=== PATIENT | female | born 1980 | race Caucasian/White ===

== ENCOUNTER 2018-04-12 13:41 | Emergency (ER) | payer MEDICAID, OTHER ==
--- NOTE | 2018-04-12 13:57 | Emergency Department Report ---
Blank Doc - Documentation Documentation: This is a 37-year-old female that presents with syncope this morning in shower. Stated was caught by her before falling. Denies any head trauma or back pain. Denies any neck pain. This initial assessment diagnostic orders/clinical plan/treatment(s) is/are subject to change based on patient's health status, clinical progression and re- assessment by fellow clinical providers in the ED. Further treatment and workup at subsequent clinical providers discretion. Patient/guardians urged not to elope from ED s their condition may be serious if not clinically assessed and managed. Initial orders include: 1-Patient sent to MAIN ED for further evaluation and treatment 2-EKG 3- Labs 4- UA 5- CT of head
--- NOTE | 2018-04-12 15:23 | Cat Scan Report ---
CT HEAD WITHOUT CONTRAST: HISTORY: Syncope. TECHNIQUE: Sequential 2.5mm CT images. COMPARISON: none. FINDINGS: Cerebral Parenchyma: Within normal limits. Cerebellum: Within normal limits. Brainstem: Within normal limits. Ventricles: Normal. Sella: Normal. Extra-axial spaces: Normal. Basal Cisterns: Normal. Intracranial Hemorrhage: None. Midline Shift: None. Calvarium: Normal. Sinuses: Normal. Mastoid Air Cells: Normal. Visualized Orbits: Normal. IMPRESSION: Cranial CT scan within normal limits.
--- NOTE | 2018-04-12 15:35 | Emergency Department Report ---
ED Syncope HPI - General Chief Complaint: Syncope Stated Complaint: LIGHT HEADED Time Seen by Provider: 04/12/18 13:51 Source: patient, family - History of Present Illness Initial Comments: Ms. Chopra is a 37-year-old female with history of Crescencio en Y gastric bypass surgery presents with 1 month fatigue, several months of oral and body rash. Today she had a syncopal episode. She was in her normal state of health when she felt extremely warm and lightheaded in the shower. She developed ear ringing. She then passed out into the arms of her who witnessed the episode. She then passed out into the her 's arms. No seizure activity. says he was unconscious for about 1 minute with eyes fluttering. She's had diffuse body rash with persistent periorbital erythema irritation. She also had pins and needle sensation in her extremities. Family members notice that she eats ice constantly. She is 3 years status post Crescencio-en-Y gastric bypass surgery. She has been u nable to tolerate vitamin supplementation. "My stomach will not take it." Timing/Prior Episodes: single episode today Precipitating Factors: Positive: lightheadedness Context: standing Loss of Consciousness: prolonged (minutes) (1) Current Symptoms: other (malaise) - Related Data Allergies/Adverse Reactions: Allergies morphine Allergy (Verified 07/22/13 14:42) Headache Home Medications: Ambulatory Orders No Known Home Medications [No Reported Home Medications] 09/29/13 ED Review of Systems ROS: Stated complaint: LIGHT HEADED Other details as noted in HPI Comment: All other systems reviewed and negative Constitutional: malaise, weakness ED Past Medical Hx - Past Medical History Previous Medical History?: Yes Hx Hypertension: Yes (diet controlled) Hx Asthma: Yes Additional medical history: high cholesterol; mitral valve prolapse-at age - Surgical History Additional Surgical History: tubal aligation; breast reduction - Social History Smoking Status: Current Every Day Smoker Substance Use Type: None - Medications Home Medications: Home Medications Medication Instructions Recorded Confirmed Last Taken Type No Known Home Medications [No 09/29/13 09/29/13 Unknown History Reported Home Medications] ED Physical Exam - General Limitations: No Limitations General appearance: alert, in no apparent distress - Head Head exam: Present: atraumatic, normocephalic - Eye Eye exam: Present: normal appearance - ENT ENT exam: Present: mucous membranes moist, other (perioral erythema and mild lip edema) - Neck Neck exam: Present: normal inspection - Respiratory Respiratory exam: Present: normal lung sounds bilaterally. Absent: respiratory distress, wheezes, rales, rhonchi - Cardiovascular Cardiovascular Exam: Present: regular rate, normal rhythm, normal heart sounds. Absent: systolic murmur, diastolic murmur, rubs, gallop - GI/Abdominal GI/Abdominal exam: Present: soft, normal bowel sounds. Absent: distended, tenderness, guarding, rebound - Extremities Exam Extremities exam: Present: normal inspection - Back Exam Back exam: Present: normal inspection - Neurological Exam Neurological exam: Present: alert, oriented X3 - Psychiatric Psychiatric exam: Present: normal affect, normal mood - Skin Skin exam: Present: warm, dry, intact, normal color. Absent: rash ED Course Vital Signs 04/12/18 04/12/18 13:57 15:38 Temperature 98.3 F Pulse Rate 90 Pulse Rate [ 71 Lying] Pulse Rate [ 88 Sitting] Pulse Rate [ 93 H Standing] Respiratory 18 Rate Blood Pressure 121/62 Blood Pressure 109/62 [Lying] Blood Pressure 115/70 [Sitting] Blood Pressure 119/72 [Standing] O2 Sat by Pulse 100 Oximetry ED Medical Decision Making - Lab Data Result diagrams: 04/12/18 15:57 04/12/18 15:57 - EKG Data EKG shows normal: sinus rhythm, axis, intervals, QRS complexes, ST-T waves Rate: normal - Radiology Data Radiology results: report reviewed, image reviewed interpreted by me: bilateral knee radiographs: no fx no dislocation ct head: NAP - Medical Decision Making Ms. Chopra presents with stomatitis, rash, paresthesias, fatigue now syncope 3 years after RYGB. I suspect micronutrient deficiency likely thiamine or vitamin B6. She has appointment with bariatric surgeon. She will need urgent treatment for vitamin deficiencies. I repeatedly stress the possibility of paralysis. She has stomach upset with vitamin supplementation. She was unable to afford the prescribed vitamin supplement offered as an alternative. She has been without micronutrient supplementation for one year. I have referred her to our bariatric surgeon here at [facility]. She has been recently evicted. She has limited transportation to [facility] for [facility] Management. Personal Bariatric Surgeon Dr. Davidson Sesay. I attempted to contact her personal surgeon without success. She will begin iron supplementation and oral liquid vitamin supplementation. She understands that she will likely need IV infusion therapy. dc'd home Critical care attestation.: If time is entered above; I have spent that time in minutes in the direct care of this critically ill patient, excluding procedure time. ED Disposition Clinical Impression: Vitamin deficiency, History of Crescencio-en-Y gastric bypass, Stomatitis, Neuropathy, Syncope, Pica in adults, Orthostatic hypotension, Iron deficiency anemia Disposition: DC TO HOME OR SELFCARE Is pt being admited?: No Does the pt Need Aspirin: No Condition: Stable Instructions: Syncope (ED), Iron Deficiency Anemia (ED) Additional Instructions: You have severe vitamin deficiencies causing your symptoms. Please contact your bariatric surgery service today for vitamin infusion. Referrals: BRENDA BORDEN MD [Staff Physician] - [facility]
--- NOTE | 2018-04-12 15:39 | XRay Report ---
BILATERAL KNEES, 3 VIEWS History: Bilateral knee pain. Findings: Normal bone mineralization. No acute osseous findings or joint pathology is identified. The soft tissues are unremarkable. Impression: Unremarkable bilateral knees.
[2018-04-12] MEDS ORDERED: NACL 0.9% 1000 ML 1,000 ML IV ONE (15:48)
[2018-04-12 16:32] LABS: Hematocrit 27.6 % (30.3-42.9); Hemoglobin 8.2 gm/dl (10.1-14.3); Mean Corpuscular HGB Conc 30 % (30-34); Platelet Count 225 K/mm3 (140-440); Red Blood Count 4.28 M/mm3 (3.65-5.03); Red Cell Distribution Width 17.8 % (13.2-15.2)
[2018-04-12 16:51] LABS: Mean Corpuscular Volume 64 fl (79-97)
[2018-04-12 16:55] LABS: Alanine Aminotransferase 7 units/L (7-56); Albumin 4.1 g/dL (3.9-5); BUN/Creatinine Ratio 20; Blood Urea Nitrogen 12 mg/dL (7-17); Calcium 8.6 mg/dL (8.4-10.2); Hemolysis Index 20
[2018-04-12 17:20] LABS: Basophils % (Manual) 0 % (0.0-1.8); Total Cells Counted 100
[2018-04-12 17:21] LABS: Anisocytosis 1+; Hypochromasia 1+; Ovalocytes Few; Platelet Estimate Consistent w Auto; Target Cells Few
[2018-04-12 17:22] LABS: Tear Drop Cells Few
[2018-04-12 17:55] VITALS: BP 108/68
== END 2018-04-12 17:48 | disposition home or self-care (01) ==
LOC: ED 13:41
DX: I95.1 Orthostatic hypotension (principal); D50.9 Iron deficiency anemia, unspecified; E56.9 Vitamin deficiency, unspecified; J45.909 Unspecified asthma, uncomplicated; I10 Essential (primary) hypertension; E78.00 Pure hypercholesterolemia, unspecified; F17.200 Nicotine dependence, unspecified, uncomplicated; Z98.51 Tubal ligation status; Z88.5 Allergy status to narcotic agent; Z98.84 Bariatric surgery status
CPT/HCPCS: 36415; 70450; 73562; 80053; 82962; 84484; 84703; 85007; 85025; 93005; 93010; 96360; 99285; J7030

== ENCOUNTER 2018-10-04 11:22 | Outpatient (CLI) | payer MEDICAID ==
[2018-10-04 12:58] LABS: Mean Corpuscular HGB Conc 29 % (30-34); Platelet Count 206 K/mm3 (140-440); Red Blood Count 4.84 M/mm3 (3.65-5.03)
[2018-10-04 13:07] LABS: Hemoglobin 8.6 gm/dl (10.1-14.3); Mean Corpuscular Volume 62 fl (79-97)
[2018-10-04 13:10] LABS: Bacteria,Urine 4+ /HPF (Negative); Bilirubin,Urine NEG (Negative); Blood,Urine NEG (Negative); Color,Urine Yellow (Yellow); Protein,Urine <15 mg/dL mg/dL (Negative); Urobilinogen,Urine < 2.0 mg/dL (<2.0)
[2018-10-04 13:28] LABS: Erythrocyte Sedimentation Rate 24 mm/Hr (0-20)
[2018-10-04 14:47] LABS: Alanine Aminotransferase 14 units/L (7-56); Albumin 4.8 g/dL (3.9-5); BUN/Creatinine Ratio 16; Blood Urea Nitrogen 8 mg/dL (7-17); Calcium 9.6 mg/dL (8.4-10.2); Chol/HDL Ratio 2.31 %; HDL Cholesterol 79 mg/dL (40-59); Hemolysis Index 0; Iron 13 ug/dL (37-170); LDL Cholesterol,Direct 115 mg/dL (50-130)
[2018-10-04 14:49] LABS: % Iron Saturation 2.53 %; Total Iron Binding Capacity 513 mcg/dL (250-450)
[2018-10-07 12:57] LABS: Vitamin D, 25-OH, D2 <4 ng/mL
== END 2018-10-04 11:23 | disposition home or self-care (01) ==
LOC: LAB 11:22
PROVIDERS: ATTEND Internal Medicine
DX: Z13.1 Encounter for screening for diabetes mellitus (principal); Z13.220 Encounter for screening for lipoid disorders; Z13.21 Encounter for screening for nutritional disorder; N39.0 Urinary tract infection, site not specified; M79.10 Myalgia, unspecified site; D50.9 Iron deficiency anemia, unspecified; I10 Essential (primary) hypertension; J45.909 Unspecified asthma, uncomplicated
CPT/HCPCS: 36415; 80053; 80061; 81001; 82306; 82607; 82728; 82747; 83036; 83550; 84443; 85027; 85652; 87076; 87086; 87186

== ENCOUNTER 2020-04-01 16:11 | Emergency (ER) | payer SELFPAY ==
[2020-04-01 16:22] VITALS: BP 114/72
--- NOTE | 2020-04-01 16:30 | Emergency Department Report ---
ED General Adult HPI - General Chief complaint: Pain General Stated complaint: PAIN ALL OVER/SWEATS/LEG PAIN Time Seen by Provider: 04/01/20 16:30 Source: patient Mode of arrival: Ambulatory Limitations: No Limitations - History of Present Illness Initial comments: 39-year-old female with no significant past medical history presents to the ER today complaining of generalized body aches, feeling lightheaded, generally weak, low back pain, and lower pelvic pain x2 weeks. Patient states that she did Covid test about 2 weeks ago and it was negative. She was exposed to a family member who had COVID-19. Patient also complains of a sore tender area to the anterior aspect of her neck which she just noticed upon arriving to the ER. She denies any pain with swallowing or difficulty swallowing, trismus or drooling. She denies any cough, fever, chills, rhinorrhea, nasal congestion, nausea, vomiting, diarrhea, UTI symptoms or any abnormal vaginal symptoms. She states that she just ended her last menstrual cycle about 2 days ago. MD Complaint: PAIN ALL OVER/SWEATS/LEG PAIN -: week(s) (2 weeks) Severity scale (0 -10): 8 - Related Data Previous Rx's Medication Instructions Recorded Last Taken Type Ondansetron [Zofran Odt] 4 mg PO Q8HR PRN #20 tab.rapdis 06/24/18 Unknown Rx Lansoprazole [Prevacid] 15 mg PO BID #30 cap 11/06/18 Unknown Rx traMADoL [Ultram] 50 mg PO Q6HR PRN #10 tablet 11/06/18 Unknown Rx Amoxicillin [Trimox CAP] 500 mg PO Q8H #30 capsule 04/01/20 Unknown Rx Ibuprofen [Motrin] 800 mg PO Q8HR PRN #30 tablet 04/01/20 Unknown Rx Allergies Allergy/AdvReac Type Severity Reaction Status Date / Time morphine Allergy Headache Verified 06/24/18 18:23 ED Review of Systems ROS: Stated complaint: PAIN ALL OVER/SWEATS/LEG PAIN Other details as noted in HPI Comment: All other systems reviewed and negative Constitutional: denies: chills, diaphoresis, fever, malaise, weakness ENT: denies: ear pain, throat pain, dental pain, hearing loss, epistaxis, congestion Respiratory: denies: cough, orthopnea, shortness of breath, SOB with exertion, SOB at rest, stridor, wheezing, other Cardiovascular: denies: chest pain, palpitations, dyspnea on exertion, orthopnea, edema, syncope, paroxysmal nocturnal dyspnea Gastrointestinal: abdominal pain. denies: nausea, vomiting, diarrhea, constipation, melena Genitourinary: denies: urgency, dysuria, frequency, hematuria, abnormal menses, dyspareunia Musculoskeletal: back pain, arthralgia, myalgia Skin: other (Swollen area to anterior neck) Neurological: headache, weakness (Generalized). denies: numbness, paresthesias, confusion, abnormal gait, vertigo Hematological/Lymphatic: swollen glands (Anterior neck) ED Past Medical Hx - Past Medical History Previous Medical History?: Yes Hx Hypertension: (diet controlled) Hx Asthma: Yes Additional medical history: high cholesterol; mitral valve prolapse-at age - Surgical History Past Surgical History?: Yes Additional Surgical History: tubal aligation; breast reduction GASTRIC BY PASS - Social History Smoking Status: Never Smoker Substance Use Type: None - Medications Home Medications: Home Medications Medication Instructions Recorded Confirmed Last Taken Type Ondansetron [Zofran Odt] 4 mg PO Q8HR PRN #20 tab.rapdis 06/24/18 Unknown Rx Lansoprazole [Prevacid] 15 mg PO BID #30 cap 11/06/18 Unknown Rx traMADoL [Ultram] 50 mg PO Q6HR PRN #10 tablet 11/06/18 Unknown Rx Amoxicillin [Trimox CAP] 500 mg PO Q8H #30 capsule 04/01/20 Unknown Rx Ibuprofen [Motrin] 800 mg PO Q8HR PRN #30 tablet 04/01/20 Unknown Rx ED Physical Exam - General Limitations: No Limitations General appearance: alert, in no apparent distress - Head Head exam: Present: atraumatic, normocephalic, normal inspection - Eye Eye exam: Present: normal appearance, PERRL, EOMI Pupils: Present: normal accommodation - ENT ENT exam: Present: normal exam, normal orophraynx, mucous membranes moist - Neck Neck exam: Present: normal inspection, full ROM, lymphadenopathy (Small, mobile, soft, tender nodular area noted to the anterior aspect of the trachea. No overlying erythema or bruising. Trachea is midline.). Absent: thyromegaly - Respiratory Respiratory exam: Present: normal lung sounds bilaterally. Absent: respiratory distress - Cardiovascular Cardiovascular Exam: Present: regular rate, normal rhythm, normal heart sounds - GI/Abdominal GI/Abdominal exam: Present: soft. Absent: distended, tenderness - Back Exam Back exam: Present: normal inspection, full ROM. Absent: CVA tenderness (R), CVA tenderness (L) - Neurological Exam Neurological exam: Present: alert, oriented X3, CN II-XII intact, normal gait - Psychiatric Psychiatric exam: Present: normal affect, normal mood - Skin Skin exam: Present: intact ED Course Vital Signs 04/01/20 04/01/20 16:21 17:01 Temperature 98.2 F Pulse Rate 84 Respiratory 16 20 Rate Blood Pressure 114/72 [Right] O2 Sat by Pulse 98 Oximetry ED Medical Decision Making - Lab Data Result diagrams: 04/01/20 16:39 04/01/20 16:39 - Radiology Data Radiology results: report reviewed Findings [facility] [address] [place] [address] XRay Report Signed Patient: LAURO WILLS MR#: [id number] : 1980 Acct:[id number] Age/Sex: 39 / F ADM Date: 04/01/20 Loc: ED Attending Dr: Ordering Physician: BERTRAM PIMENTEL Date of Service: 04/01/20 Procedure(s): XR chest routine 2V Accession Number(s): [id number] cc: BERTRAM PIMENTEL Fluoro Time In Minutes: CHEST 2 VIEWS INDICATION / CLINICAL INFORMATION: Lightheadedness. COMPARISON: Chest 2 views from 12/23/2010. FINDINGS: SUPPORT DEVICES: None. HEART / MEDIASTINUM: No significant abnormality. LUNGS / PLEURA: Clear lungs. No significant pleural effusion. No pneumothorax. ADDITIONAL FINDINGS: No significant additional findings. IMPRESSION: 1. No significant abnormality of the chest. Signer Name: Prashanth Hutchinson MD Signed: 04/01/2020 5:29 PM Workstation Name: [id number] Transcribed By: WANDA Dictated By: Prashanth Hutchinson MD Electronically Authenticated By: Prashanth Hutchinson MD Signed Date/Time: 04/01/201728 DD/ 27 TD/TT: - Medical Decision Making 39-year-old female with no significant past medical history presents to the ER today complaining of generalized body aches, feeling lightheaded, generally weak, low back pain, and lower pelvic pain x2 weeks. Patient states that she did Covid test about 2 weeks ago and it was negative. She was exposed to a [facility] member who had COVID-19. Patient also complains of a sore tender area to the anterior aspect of her neck which she just noticed upon arriving to the ER. She denies any pain with swallowing or difficulty swallowing, trismus or drooling. She denies any cough, fever, chills, rhinorrhea, nasal congestion, nausea, vomiting, diarrhea, UTI symptoms or any abnormal vaginal symptoms. She states that she just ended her last menstrual cycle about 2 days ago. Chest x-ray shows nothing acute. Soft tissue neck normal. Labs reviewed, she is mildly anemic but otherwise labs are unremarkable. Patient currently resting in the chair. She has been tolerating p.o. fluids. She denies any acute pain or respiratory distress. She has no drooling, trismus on exam. She is tolerating her secretions well. There is no stridor or voice change. She has a soft nontender abdomen. She is not toxic appearing nor she is ill-appearing. She is neurologically intact with a normal gait through the ER. Discussed results with patient. Informed her that the tender area in the anterior aspect of her neck could be related to lymph node, will start on antibiotics to cover for possible associated infection. Informed that his symptoms could be related to a viral illness and recommend that she takes another COVID-19 test since she is more symptomatic. Recommend that she drinks more water. At this time there is no indication for any continued work-up, admission or emergent consult at this time. Commend that she follows up with her primary care doctor. If she gets worse or symptoms changes in any way she can return to the ER. Critical care attestation.: If time is entered above; I have spent that time in minutes in the direct care of this critically ill patient, excluding procedure time. ED Disposition Clinical Impression: Viral syndrome, Anterior cervical adenopathy Disposition: TO HOME OR SELFCARE Is pt being admited?: No Does the pt Need Aspirin: No Condition: Stable Instructions: Viral Respiratory Infection, [id number]-[id number], Lymphadenopathy Additional Instructions: Take the medications as prescribed. Drink lots of fluids. Rest. I recommend that you follow up with local urgent care for repeat COVID 19 test. Follow up with PCP. Return to ED if symptoms changes or worsens. Prescriptions: Ibuprofen [Motrin] 800 mg PO Q8HR PRN #30 tablet PRN Reason: Pain , Severe (7-10) Amoxicillin [Trimox CAP] 500 mg PO Q8H #30 capsule Referrals: POLO SOMMERS MD [Primary Care Provider] - 3-5 Days Forms: Work/School Release Form(ED) Time of Disposition: 18:02
[2020-04-01] MEDS ORDERED: IBUPROFEN 800 MG TAB PO ONE (16:31)
[2020-04-01 16:57] LABS: Bilirubin,Urine NEG (Negative); Blood,Urine SM (Negative); Color,Urine Yellow (Yellow); Hyaline Casts,Urine 1 /LPF; Protein,Urine <15 mg/dL mg/dL (Negative); WBC,Urine < 1.0 /HPF (0.0-6.0)
[2020-04-01 17:09] LABS: HCG Qualitative,Urine Negative (Negative)
[2020-04-01 17:11] LABS: Hemoglobin 9.2 gm/dl (10.1-14.3); Mean Corpuscular HGB Conc 31 % (30-34); Platelet Count 277 K/mm3 (140-440); Red Blood Count 4.48 M/mm3 (3.65-5.03); Red Cell Distribution Width 18.4 % (13.2-15.2)
[2020-04-01 17:12] LABS: Mean Corpuscular Volume 67 fl (79-97)
[2020-04-01 17:19] LABS: Alanine Aminotransferase 13 units/L (7-56); Albumin 4.4 g/dL (3.9-5); BUN/Creatinine Ratio 15; Blood Urea Nitrogen 9 mg/dL (7-17); Calcium 9.1 mg/dL (8.4-10.2); Hemolysis Index 6
--- NOTE | 2020-04-01 17:32 | XRay Report ---
NECK SOFT TISSUE 2 VIEW(S) INDICATION / CLINICAL INFORMATION: pain anterior neck COMPARISON: None available. FINDINGS: EPIGLOTTIS: No significant abnormality. RETROPHARYNGEAL SOFT TISSUES: No significant abnormality. AIRWAY: No significant abnormality. RADIOPAQUE FOREIGN BODY: None. SKELETAL SYSTEM: No significant abnormality. ADDITIONAL FINDINGS: None. IMPRESSION: 1. No significant abnormality. Signer Name: Prashanth Hutchinson MD Signed: 04/01/2020 5:28 PM Workstation Name: [id number]
--- NOTE | 2020-04-01 17:33 | XRay Report ---
CHEST 2 VIEWS INDICATION / CLINICAL INFORMATION: Lightheadedness. COMPARISON: Chest 2 views from 12/23/2010. FINDINGS: SUPPORT DEVICES: None. HEART / MEDIASTINUM: No significant abnormality. LUNGS / PLEURA: Clear lungs. No significant pleural effusion. No pneumothorax. ADDITIONAL FINDINGS: No significant additional findings. IMPRESSION: 1. No significant abnormality of the chest. Signer Name: Prashanth Hutchinson MD Signed: 04/01/2020 5:29 PM Workstation Name: [id number]
[2020-04-01 18:25] LABS: Hypochromasia 1+; Ovalocytes Few; Spherocytes Few; Target Cells Few; Total Cells Counted 100
== END 2020-04-01 18:28 | disposition home or self-care (01) ==
LOC: ED 16:11
DX: B34.9 Viral infection, unspecified (principal); R59.0 Localized enlarged lymph nodes; E78.00 Pure hypercholesterolemia, unspecified; I10 Essential (primary) hypertension; J45.909 Unspecified asthma, uncomplicated; Z98.890 Other specified postprocedural states; Z79.899 Other long term (current) drug therapy; Z88.6 Allergy status to analgesic agent; Z98.51 Tubal ligation status
CPT/HCPCS: 36415; 70360; 71046; 80053; 81001; 81025; 85007; 85025

== ENCOUNTER 2020-09-11 08:26 | Emergency (ER) | payer SELFPAY ==
[2020-09-11 08:44] VITALS: BP 123/86
--- NOTE | 2020-09-11 10:58 | Emergency Department Report ---
- General Chief Complaint: Dyspnea/Respdistress Stated Complaint: COLD,CHEST DISCOMFORT Time Seen by Provider: 09/11/20 10:56 Source: patient Mode of arrival: Ambulatory Limitations: No Limitations - History of Present Illness Initial Comments: 39-year-old female presents to the emergency room for 3-day history of body aches cough chest congestion headache chest tightness productive cough rhinorrhea and nasal congestion. Reports fever of 100.8. Took Tylenol this morning at 6 AM. Has not had a Covid test. Denies any sick contact. Last menstrual period was 08/24/2020. Onset/Timin -: days(s) Severity scale (0 -10): 4 Consistency: constant Improves With: nothing Worsens With: nothing Associated Symptoms: fever, chills, headache, rhinorrhea, nasal congestion, sore throat, cough, chest pain Treatments Prior to Arrival: Acetaminophen (0600) - Related Data Previous Rx's Medication Instructions Recorded Last Taken Type Ondansetron [Zofran Odt] 4 mg PO Q8HR PRN #20 tab.rapdis 06/24/18 Unknown Rx Lansoprazole [Prevacid] 15 mg PO BID #30 cap 11/06/18 Unknown Rx traMADoL [Ultram] 50 mg PO Q6HR PRN #10 tablet 11/06/18 Unknown Rx Amoxicillin [Trimox CAP] 500 mg PO Q8H #30 capsule 04/01/20 Unknown Rx Ibuprofen [Motrin] 800 mg PO Q8HR PRN #30 tablet 04/01/20 Unknown Rx Albuterol Sulfate [Proventil Hfa] 6.7 gm IH QID PRN #1 hfa.aer.ad 09/11/20 Unknown Rx Prednisone [predniSONE 5 mg (6-Day 5 mg PO .TAPER #1 tab.ds.pk 09/11/20 Unknown Rx Pack, 21 Tabs)] Allergies Allergy/AdvReac Type Severity Reaction Status Date / Time morphine Allergy Headache Verified 06/24/18 18:23 ED Review of Systems ROS: Stated complaint: COLD,CHEST DISCOMFORT Other details as noted in HPI Comment: All other systems reviewed and negative ED Past Medical Hx - Past Medical History Previous Medical History?: Yes Hx Hypertension: (diet controlled) Hx Asthma: Yes Additional medical history: high cholesterol; mitral valve prolapse-at age - Surgical History Past Surgical History?: Yes Additional Surgical History: tubal aligation; breast reduction GASTRIC BY PASS - Social History Smoking Status: Never Smoker Substance Use Type: None - Medications Home Medications: Home Medications Medication Instructions Recorded Confirmed Last Taken Type Ondansetron [Zofran Odt] 4 mg PO Q8HR PRN #20 tab.rapdis 06/24/18 Unknown Rx Lansoprazole [Prevacid] 15 mg PO BID #30 cap 11/06/18 Unknown Rx traMADoL [Ultram] 50 mg PO Q6HR PRN #10 tablet 11/06/18 Unknown Rx Amoxicillin [Trimox CAP] 500 mg PO Q8H #30 capsule 04/01/20 Unknown Rx Ibuprofen [Motrin] 800 mg PO Q8HR PRN #30 tablet 04/01/20 Unknown Rx Albuterol Sulfate [Proventil Hfa] 6.7 gm IH QID PRN #1 hfa.aer.ad 09/11/20 Unknown Rx Prednisone [predniSONE 5 mg (6-Day 5 mg PO .TAPER #1 tab.ds.pk 09/11/20 Unknown Rx Pack, 21 Tabs)] ED Physical Exam - General Limitations: No Limitations General appearance: alert, in no apparent distress - Head Head exam: Present: atraumatic, normocephalic - Eye Eye exam: Present: normal appearance - ENT ENT exam: Present: normal orophraynx, mucous membranes moist, TM's normal bilaterally, normal external ear exam - Neck Neck exam: Present: normal inspection, full ROM - Respiratory Respiratory exam: Present: wheezes, rhonchi (Mild). Absent: respiratory distress, accessory muscle use - Cardiovascular Cardiovascular Exam: Present: regular rate - GI/Abdominal GI/Abdominal exam: Present: soft, normal bowel sounds - Back Exam Back exam: Present: full ROM - Neurological Exam Neurological exam: Present: alert, oriented X3, normal gait - Psychiatric Psychiatric exam: Present: normal affect, normal mood - Skin Skin exam: Present: warm, dry, intact, normal color. Absent: rash ED Course Vital Signs 09/11/20 09/11/20 08:42 11:28 Temperature 98.3 F Pulse Rate 89 Respiratory 16 16 Rate Blood Pressure 123/86 O2 Sat by Pulse 99 Oximetry - Reevaluation(s) Reevaluation #1: 09/11/20 12:43 Patient reports she feels much better after having breathing treatment and steroids. ED Medical Decision Making - Radiology Data Radiology results: report reviewed [facility] [address] [place] [address] XRay Report Signed Patient: LAURO WILLS MR#: [id number] : 1980 Acct:[id number] Age/Sex: 39 / F ADM Date: 09/11/20 Loc: ED Attending Dr: Ordering Physician: CONRADO CHOWDARY Date of Service: 09/11/20 Procedure(s): XR chest routine 2V Accession Number(s): [id number] cc: CONRADO CHOWDARY Fluoro Time In Minutes: CHEST 2 VIEWS INDICATION / CLINICAL INFORMATION: cough,fever. COMPARISON: 04/01/2020 FINDINGS: SUPPORT DEVICES: None. HEART / MEDIASTINUM: No significant abnormality. LUNGS / PLEURA: No significant pulmonary or pleural abnormality. No pneumothorax. ADDITIONAL FINDINGS: No significant additional findings. IMPRESSION: 1. No acute findings. Signer Name: Dre Pham MD Signed: 09/11/2020 11:27 AM Workstation Name: [employer] Transcribed By: SB Dictated By: DRE PHAM MD Electronically Authenticated By: DRE PHAM MD Signed Date/Time: 09/11/20 112 DD/ 25 TD/TT: Print Cancel - Medical Decision Making 39-year-old female presents to the emergency room for 3-day history of body aches cough chest congestion headache chest tightness productive cough rhinorrhea and nasal congestion. Reports fever of 100.8. Took Tylenol this morning at 6 AM. Has not had a Covid test. Denies any sick contact. Last menstrual period was 08/24/2020. Chest x-ray is ordered, ibuprofen, dexamethasone 10 mg IM, albuterol 10 mg inhalation. Chest x-ray is negative for any acute abnormalities. Discussed with patient to complete steroid pack use her albuterol inhaler and bead picker Zyrtec's 10 mg daily from the pharmacy. Patient is to follow-up with her primary care provider in the next 3 to 5 days. Critical Care Time: Yes (30) Critical care attestation.: If time is entered above; I have spent that time in minutes in the direct care of this critically ill patient, excluding procedure time. ED Disposition Clinical Impression: Viral syndrome Disposition: DC-01 TO HOME OR SELFCARE Is pt being admited?: No Does the pt Need Aspirin: No Condition: Stable Instructions: Viral Respiratory Infection, [id number] Additional Instructions: Your symptoms appear most consistent with a nonspecific viral syndrome. Catalina robbins, given this current pandemic, COVID-19 is in the differential of possibilities. Despite your previous negative COVID-19 test, I do recommend repeat outpatient Covid 19 testing. In the meantime, isolate/quarantine yourself and stay away from anyone who is elderly, immunocompromised or chronically ill. You can use ibuprofen every 6-8 hours and Tylenol every 4-8 hours, using the dosing on the back of the bottle, as needed for any fever or body aches. Return to the emergency department with any worsening of your symptoms, development of chest pain or shortness of breath, or with any acute di stress. He can try [id number] Zyrtec's, ibuprofen complete steroid as prescribed. Follow-up with a primary care provider. Tylenol or ibuprofen as needed for fever. Prescriptions: Prednisone [predniSONE 5 mg (6-Day Pack, 21 Tabs)] 5 mg PO .TAPER #1 tab.ds.pk Albuterol Sulfate [Proventil Hfa] 6.7 gm IH QID PRN #1 hfa.aer.ad PRN Reason: Cough Referrals: PRIMARY CARE, [Primary Care Provider] - 3-[address] [facility] [Provider Group] - 3-5 Days Forms: Work/School Release Form(ED) Time of Disposition: 12:42
[2020-09-11] MEDS ORDERED: ALBUTEROL 2.5 MG/3 ML NEBU IH ONE (11:06)
[2020-09-11] MEDS ORDERED: dexAMETHasone 20 MG/5 ML VIAL IM ONE (11:06)
[2020-09-11] MEDS ORDERED: IBUPROFEN 600 MG TAB PO ONE (11:06)
--- NOTE | 2020-09-11 11:31 | XRay Report ---
CHEST 2 VIEWS INDICATION / CLINICAL INFORMATION: cough,fever. COMPARISON: 04/01/2020 FINDINGS: SUPPORT DEVICES: None. HEART / MEDIASTINUM: No significant abnormality. LUNGS / PLEURA: No significant pulmonary or pleural abnormality. No pneumothorax. ADDITIONAL FINDINGS: No significant additional findings. IMPRESSION: 1. No acute findings. Signer Name: Dre Pham MD Signed: 09/11/2020 11:27 AM Workstation Name: [id number]
== END 2020-09-11 13:02 | disposition home or self-care (01) ==
LOC: ED 08:26
DX: B34.9 Viral infection, unspecified (principal); I10 Essential (primary) hypertension; J45.909 Unspecified asthma, uncomplicated; E78.00 Pure hypercholesterolemia, unspecified; Z79.899 Other long term (current) drug therapy; Z88.6 Allergy status to analgesic agent; Z98.51 Tubal ligation status; Z98.890 Other specified postprocedural states
CPT/HCPCS: 71046; 94640; 96372; 99283; J1100